=== PATIENT | female | born 1990 | race Caucasian/White ===

== ENCOUNTER → 2019-01-17 | Day surgery (SDC) | payer OTHER ==
[~2019-01-17] MED LIST: ACETAMINOPHEN 1000 MG/100 ML 100 ML IV ONE; DEXAMETHASONE SOD PHOS INJ 4 MG/ML VIAL ONE; FENTANYL CITRATE/PF 100MCG/2 ML INJ ONE; LIDOCAINE HCL 2% LOCAL INJ 5 ML SDV VIAL INJ ONE; MIDAZOLAM HCL 2 MG/2 ML VIAL ONE; OFLOXACIN 0.3% (OTIC SOL) 5 ML BTL ONE; ONDANSETRON HCL INJ 2MG/ML 2ML 2 MG/ML VIAL ONE; PROPOFOL IV EMULSION 10 MG/ML 20 ML VIAL ONE; SEVOFLURANE INHAL SOLN 250 ML PEN BTL ONE
--- NOTE | 2019-01-17 03:01 | Pre Op History & Physical ---
DATE OF SURGERY: January 17, 2019. CHIEF COMPLAINT: Chronic otitis media. HISTORY OF PRESENT ILLNESS: This 28-year-old female has recurrent ear infection. The patient has multiple BMT's over the years. Last one was done by myself in December 2016 with T-tube, but tube got extruded. The patient has recurrent otitis media since the tube got extruded. The patient has been treated with multiple antibiotics, topical nasal steroid and even systemic steroid with no improvement of the condition. A CT scan of the temporal bone that was done recently showed the patient has bilateral mastoid effusion with mid ear structure within normal limits. 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 Speech discrimination of 100% bilaterally. REVIEW OF SYSTEMS: System review showed no recent cardiovascular, respiratory, or GI problem. PAST MEDICAL HISTORY: The patient has no significant medical problem. PAST SURGICAL HISTORY: The patient has multiple ear procedures including bilateral myringotomy and tubes multiple times over the years and also tympanoplasty. The patient has three ankle surgery, appendectomy, and cholecystectomy. ALLERGIES: SHE HAS NO KNOWN ALLERGY TO MEDICATION. MEDICATIONS: She is on no regular medication. SOCIAL HISTORY: She is a nonsmoker, nondrinker. FAMILY HISTORY: Noncontributory. PHYSICAL EXAMINATION: VITAL SIGNS: The patient's vital signs were within normal limits. HEENT: Ear exam show serous effusion on both sides. Nasal exam show hypertrophy of the inferior turbinates. Oropharynx and oral cavity show 2+ tonsils bilaterally with Mallampati level 2. NECK: Showed no lymph node or thyroid palpable. CHEST: Showed good air entry bilaterally. CARDIOVASCULAR: Showed S1, S2. No murmur noted. ASSESSMENT AND PLAN: Mrs. Maya has chronic otitis media, which has been resistant to conservative therapy. Suggested treatment as bilateral myringotomy tubes with T-tube insertion and other necessary procedure. Complication of procedure includes, but not limited to bleeding, infection, TM perforation, persistent drainage in the ear, hearing loss, persistent recurrence of ear problems. The alternative will be continue observation, continue antibiotic therapy, topical nasal steroid therapy, systemic steroid therapy, decongestant, and bilateral myringotomy tubes in the office setting. The patient has elected to undergo the surgical procedure. MD AUSTIN Adkins/CARMENCITA /[id number]
[2019-01-17 10:25] VITALS: BP 102/65
--- NOTE | 2019-01-17 11:23 | Operative Report ---
DATE OF PROCEDURE: 01/17/2019 SURGEON: Mychal Goyal MD CHIEF COMPLAINT: Chronic otitis media. POSTOPERATIVE DIAGNOSES: Chronic otitis media with retraction pocket on the posterior superior quadrant on the right side. OPERATIVE PROCEDURE: Bilateral myringotomy tubes with T-tube insertion and debridement of the right retraction pocket. ANESTHESIA: Dr. Gaytan. INDICATIONS: This is a 28-year-old female, who has longstanding history of chronic otitis media. The patient had a T-tube insertion in 2017. The tube was extruded. The patient had multiple bilateral myringotomy tubes and also other ear surgery before. On examination, she was noted to have negative pressure in both ears. It was decided that bilateral myringotomy tubes with T-tubes and other necessary procedure will be beneficial for her. DESCRIPTION OF PROCEDURE: The patient was taken to the operating room, put under general anesthesia, endotracheally intubated. The LMA airway created. The right ear was examined. The ear canal was debrided. A small retraction pocket was noted in the posterior superior quadrant. This was removed. No obvious TM perforation was noted. The myringotomy was done in anterior superior quadrant. Looking through the myringotomy site. Polypoid changes were noted in the middle ear mucosa. A T-tube was inserted into the TM. The left ear was examined. The ear canal was debrided. No retraction pocket was noted on the left ear. The myringotomy was done in anterior superior quadrant. Looking through the myringotomy site, no inflamed mucosa was noted in the middle ear cleft on the left side. A T-tube was inserted. The patient tolerated the above procedure well with minimal blood loss. She was able to be transferred to recovery room in a stable condition. Mychal Goyal MD DKH/MODL /[id number]
== END | disposition home or self-care (01) ==
LOC: OR 07:37
PROVIDERS: ATTEND Otolaryngology Otolaryngology/Facial Plastic Surgery
DX: H65.493 Other chronic nonsuppurative otitis media, bilateral (principal); H74.41 Polyp of right middle ear; H93.8X1 Other specified disorders of right ear; J34.3 Hypertrophy of nasal turbinates
CPT/HCPCS: 69436; 81025; J0131; J1100; J2001; J2250; J2405; J2704